=== PATIENT | female | born 1945 | race Caucasian/White ===

== ENCOUNTER 2018-03-14 08:53 | Emergency (ER) | payer MEDICARE, SELFPAY ==
[2018-03-14 08:59] VITALS: BMI 22.0
--- NOTE | 2018-03-14 09:06 | ED.ABDPAIN ---
HPI - Abdominal Pain General Chief Complaint: Abdominal Pain Stated Complaint: ADOMINAL CRAMPING Time Seen by Provider: 03/14/18 08:58 Source: patient Mode of arrival: ambulatory Limitations: no limitations History of Present Illness HPI narrative: 72-year-old female nonsmoker with history of colon cancer and bowel resection presents to the emergency department today with a chief complaint of increasing generalized lower abdominal pain since this morning. She states it feels like prior episodes of bowel obstruction. She denies fever, chills nor nausea or vomiting. She has been incontinent of bowel and bladder since her bowel surgeries in 2012 down in [place]. She denies runny nose, sore throat or cough. She has had no chest pain or shortness of breath. She states her symptoms started soon after eating dinner last evening. She denies bad food, exposure to go person's, international travel, antibiotics. Her pain is crampy and building MD complaint: abdominal pain Onset (ago): hour(s) Pain Consistency: constant Location: LLQ, RLQ and suprapubic Severity: similar to previous episodes Quality: cramping Radiation: none Migration to: no migration Relieving factors: nothing Exacerbating factors: nothing Associated symptoms: denies other symptoms Related Data Home Medications Medication Instructions Recorded Confirmed Calcium 1 tab PO DAILY 03/14/18 03/14/18 Fish Oil 1 cap PO DAILY 03/14/18 03/14/18 Vitamin D3 1 cap PO DAILY 03/14/18 03/14/18 aspirin 81 mg PO DAILY 03/14/18 03/14/18 multivitamin 1 tab PO DAILY 03/14/18 03/14/18 omeprazole magnesium [Prilosec OTC] 20 mg PO DAILY 03/14/18 03/14/18 Previous Rx's Medication Instructions Recorded sulfamethoxazole-trimethoprim 1 tab PO BID 7 Days #14 tab 03/14/18 [Bactrim DS] Allergies Allergy/AdvReac Type Severity Reaction Status Date / Time erythromycin base Allergy Verified 03/14/18 08:59 Penicillins Allergy Verified 03/14/18 08:59 pseudoephedrine Allergy Verified 03/14/18 08:59 [From Actifed] triprolidine [From Actifed] Allergy Verified 03/14/18 08:59 Review of Systems Constitutional Denies chills, Denies fever(s), Denies lethargy and Denies weakness Eyes Denies change in vision, Denies eye discharge, Denies irritation and Denies loss of vision ENT Ears, Nose, Mouth, and Throat: Denies change in voice, Denies neck pain and Denies sore throat Cardiovascular Denies chest pain, Denies irregular heart rhythm, Denies lightheadedness, Denies palpitations, Denies dyspnea, Denies dyspnea on exertion and Denies orthopnea Respiratory Denies cough, Denies dyspnea, Denies dyspnea on exertion and Denies wheezing Gastrointestinal Gastrointestinal: Reports abdominal pain, Denies change in bowel habits, Denies diarrhea, Denies nausea and Denies vomiting Genitourinary Denies hematuria, Denies flank pain, Denies urinary incontinence and Denies urinary urgency Musculoskeletal Denies neck pain Integumentary/Breasts Denies pruritus, Denies erythema, Denies rash and Denies wounds Neurologic Denies confusion, Denies loss of vision and Denies weakness Psychiatric Denies anxiety, Denies confusion, Denies depression, Denies homicidal ideation and Denies suicidal ideation Endocrine Denies palpitations Hematologic/Lymphatic Denies easy bruising Allergic/Immunologic Denies wheezing [facility] Social History Smoking Status: Never smoker Social History Smoking Status: Never smoker Exam Narrative Exam Narrative: GENERAL: 72-year-old female, appears younger than stated age, obviously uncomfortable, tearful, rubbing her lower abdomen HEAD: Atraumatic. Normocephalic. No temporal or scalp tenderness. EYES: Pupils equal round and reactive. Extraocular motions intact. No scleral icterus. No injection or drainage. ENT: Nose without bleeding, purulent drainage or septal hematoma. Throat without erythema, tonsillar hypertrophy or exudate. Uvula midline. Airway patent. NECK: Trachea midline. No JVD or lymphadenopathy. Supple, nontender, no meningeal signs. CARDIOVASCULAR: Regular rate and rhythm without murmurs, gallops, or rubs. RESPIRATORY: Clear to auscultation. Breath sounds equal bilaterally. No wheezes, rales, or rhonchi. GASTROINTESTINAL: Abdomen soft, mild suprapubic tenderness, nondistended. No hepato-splenomegaly, or palpable masses. No guarding. EXTREMITIES: No clubbing, cyanosis, or edema. No joint tenderness, effusion, or edema noted. BACK: Nontender without deformity or crepitance. No flank tenderness. NEURO: AOx3. SKIN: No rash or erythema. Initial Vital Signs Initial Vital Signs: Vital Signs Pulse Rate 70 03/14/18 10:00 Respiratory Rate 17 03/14/18 10:00 Blood Pressure 121/60 03/14/18 10:00 Pulse Oximetry 97 03/14/18 10:00 Course Orders Ordered: ED Orders 03/14/18 10:04 CT abdomen pelvis w con Stat 03/14/18 10:15 Urinalysis and Microscopic Stat Urine Culture Stat 03/14/18 11:30 US pelvic complete Stat Discontinued Medications Diphenhydramine HCl (Benadryl) 25 mg IV NOW ONE Stop: 03/14/18 09:59 Last Admin: 03/14/18 10:07 Dose: 25 mg Sodium Chloride (Normal Saline 0.9%) 500 mls @ 1,000 mls/hr IV BOLUS ONE Stop: 03/14/18 09:42 Last Infusion: 03/14/18 10:50 Dose: 0 mls/hr Admin: 03/14/18 09:32 Dose: 1,000 mls/hr Methylprednisolone (Solu-Medrol 125 Mg Vial) 125 mg IV NOW ONE Stop: 03/14/18 09:59 Last Admin: 03/14/18 10:07 Dose: 125 mg Pantoprazole Sodium (Protonix) 40 mg IV NOW ONE Stop: 03/14/18 09:14 Last Admin: 03/14/18 09:29 Dose: 40 mg Vital Signs - 8 hr 03/14/18 11:10 03/14/18 12:43 Pulse Rate 72 77 Respiratory Rate 14 16 Blood Pressure [Left Arm] 110/47 L 124/66 Pulse Oximetry 96 96 MDM - Abdominal Pain Lab Data Attestation: I reviewed the patient's lab results. Result diagrams: 03/14/18 09:10 03/14/18 09:10 Lab Results 03/14/18 03/14/18 03/14/18 Range/Units 09:10 09:10 10:15 WBC 11.5 H (4.5-11.0) X10^3/uL RBC 4.31 (4.0-5.2) X10^6/uL Hgb 12.1 (12.0-16.0) g/dL Hct 36.9 (36-46) % MCV 85.6 (80-100) fL MCH 28.1 (26-34) PG MCHC 32.8 (30-36) % RDW 14.9 H (11.6-14.8) % Plt Count 306 (150-400) X10^3/uL Neut % (Auto) 81.0 H (50-75) % Lymph % (Auto) 8.5 L (25-40) % [place] % (Auto) 9.8 (3-14) % Eos % (Auto) 0.1 L (2-4) % Baso % (Auto) 0.6 (0-2) % Neut # (Auto) 9400 H (2128-6207) /uL Lymph # (Auto) 1000 L (9012-4049) /uL [place] # (Auto) 1100 H (0-900) /uL Eos # (Auto) 0 (0-450) /uL Baso # (Auto) 100 (0-100) /uL Sodium 137 (137-145) mmol/L Potassium 3.8 (3.4-5.1) mmol/L Chloride 104 (98-107) mmol/L Carbon Dioxide 22 (22-32) mmol/L BUN 15 (7-17) mg/dL Creatinine 0.70 (0.52-1.04) mg/dL Estimated GFR > 60.0 (>60) mL/min BUN/Creatinine Ratio 21.4 (6-22) Glucose 105 (80-110) mg/dL Calcium 9.2 (8.4-10.2) mg/dL Total Bilirubin 0.4 (0.2-1.3) mg/dL AST 23 (14-36) IU/L ALT 38 (9-52) IU/L Alkaline Phosphatase 72 (38-126) U/L Total Protein 7.5 (6.3-8.2) g/dL Albumin 4.4 (3.5-5.0) g/dL Globulin 3.1 (1.7-4.1) g/dL Albumin/Globulin Ratio 1.4 (1.0-2.8) Lipase 56 (23-300) U/L Urine Color Yellow Urine Appearance Cloudy Urine pH 6.0 (4.5-8.0) Ur Specific [place] 1.015 (1.000-1.035) Urine Protein 1+ H (Negative) Urine Glucose (UA) Negative (Negative) g/dL Urine Ketones 1+ H (NEGATIVE) Urine Occult Blood 3+ H (Negative) Urine Nitrate Positive H (Negative) Urine Bilirubin Negative (NEGATIVE) Urine Urobilinogen 0.2 (0.2) E.U./dL Ur Leukocyte Esterase 2+ H (NEGATIVE) Urine RBC 30-100/hpf H (0-5/HPF) Urine WBC >100/hpf H (0-5/HPF) Urine Bacteria Many (>30) H (None) Ur Culture Indicated? Specimen cultured Imaging Data CT scan - abdomen: Radiologist's impression: [address] [address] [address] Scan Report Signed Patient: Kamilah PuenteMR#: [id number] : 7Acct:[id number] Age/Sex: 72 / FDate of Service: 03/14/18 Loc: ED Accession Number: [id number] Procedure: CT abdomen pelvis w con Ordering Provider: Giacomo Madrid D.O. PROCEDURE: CT ABDOMEN PELVIS W CON INDICATIONS: severe abdominal pain TECHNIQUE: After the administration of intravenous contrast, 5 mm thick sections acquired from the diaphragm to the symphysis. 5 mm coronal and sagittal reformats were acquired. For radiation dose reduction, the following was used: automated exposure control, adjustment of mA and/or kV according to patient size. COMPARISON: None. FINDINGS: Image quality: Excellent. ABDOMEN: Lung bases: Lung bases are clear. Heart size is normal. Solid organs: Liver is normal in size and enhancement. Focal fatty infiltration of the liver adjacent to the falciform ligament. 6 mm probable cyst noted in the right lobe deliver. Gallbladder is within normal limits. Biliary system is non dilated. Pancreas enhances normally. Spleen is normal in size and enhancement. No adrenal nodules. Kidneys demonstrate normal size and enhancement, without hydronephrosis. There is enhancement of the ureter epithelium bilaterally which is a nonspecific finding, but can be associated with urinary tract infections. Peritoneum and bowel: Small hiatal hernia. Bowel loops demonstrate normal wall thickness and caliber. A moderate amount of stool seen throughout the colon. Anastomotic sutures noted at the rectoanal junction. No free fluid or air. The visualized appendix is normal. Nodes and vessels: No retroperitoneal or mesenteric adenopathy by size criteria. Aorta and inferior vena cava are normal in size. Miscellaneous: No ventral hernias. PELVIS: Genitourinary: Bladder wall thickness is normal. The uterus is absent. 2.1 cm right adnexal region cyst is noted. Miscellaneous: No inguinal hernias or adenopathy. Bones: No suspicious bony lesions. No vertebral body compression fractures. Lateral spine grade one L2 on L3 degenerative retrolisthesis noted. IMPRESSION: 1. No free fluid or free air. 2. No dilated loops of bowel. 3. Moderate fecal loading throughout the colon. Please correlate with clinical data. 4. Postsurgical changes at the rectoanal junction. Please correlate this history. 5. 2.1 cm right adnexal region cyst and 2.2 cm left adnexal region cyst. Recommend pelvic ultrasound for definitive characterization. Uterus is surgically absent. 6. Enhancement of the ureteral urothelium. Finding is nonspecific, but be associated with urinary tract infections. Recommend correlation with urinalysis data. Dictated by: Lawanda Francis MD, PhD on 03/14/2018 at 11:14 Approved by: Lawanda Francis MD, PhD on 03/14/2018 at 11:22 Abdominal x-ray: Radiologist's impression: [place] [address] CT Scan Report Signed Patient: Kamilah PuenteMR#: [id number] : 7Acct:[id number] Age/Sex: 72 / FDate of Service: 03/14/18 Loc: ED Accession Number: [id number] Procedure: CT abdomen pelvis w con Ordering Provider: Giacomo Madrid D.O. PROCEDURE: CT ABDOMEN PELVIS W CON INDICATIONS: severe abdominal pain TECHNIQUE: After the administration of intravenous contrast, 5 mm thick sections acquired from the diaphragm to the symphysis. 5 mm coronal and sagittal reformats were acquired. For radiation dose reduction, the following was used: automated exposure control, adjustment of mA and/or kV according to patient size. COMPARISON: None. FINDINGS: Image quality: Excellent. ABDOMEN: Lung bases: Lung bases are clear. Heart size is normal. Solid organs: Liver is normal in size and enhancement. Focal fatty infiltration of the liver adjacent to the falciform ligament. 6 mm probable cyst noted in the right lobe deliver. Gallbladder is within normal limits. Biliary system is non dilated. Pancreas enhances normally. Spleen is normal in size and enhancement. No adrenal nodules. Kidneys demonstrate normal size and enhancement, without hydronephrosis. There is enhancement of the ureter epithelium bilaterally which is a nonspecific finding, but can be associated with urinary tract infections. Peritoneum and bowel: Small hiatal hernia. Bowel loops demonstrate normal wall thickness and caliber. A moderate amount of stool seen throughout the colon. Anastomotic sutures noted at the rectoanal junction. No free fluid or air. The visualized appendix is normal. Nodes and vessels: No retroperitoneal or mesenteric adenopathy by size criteria. Aorta and inferior vena cava are normal in size. Miscellaneous: No ventral hernias. PELVIS: Genitourinary: Bladder wall thickness is normal. The uterus is absent. 2.1 cm right adnexal region cyst is noted. Miscellaneous: No inguinal hernias or adenopathy. Bones: No suspicious bony lesions. No vertebral body compression fractures. Lateral spine grade one L2 on L3 degenerative retrolisthesis noted. IMPRESSION: 1. No free fluid or free air. 2. No dilated loops of bowel. 3. Moderate fecal loading throughout the colon. Please correlate with clinical data. 4. Postsurgical changes at the rectoanal junction. Please correlate this history. 5. 2.1 cm right adnexal region cyst and 2.2 cm left adnexal region cyst. Recommend pelvic ultrasound for definitive characterization. Uterus is surgically absent. 6. Enhancement of the ureteral urothelium. Finding is nonspecific, but be associated with urinary tract infections. Recommend correlation with urinalysis data. Dictated by: Lawanda Francis MD, PhD on 03/14/2018 at 11:14 Approved by: Lawanda Francis MD, PhD on 03/14/2018 at 11:22 US - abdomen: Radiologist's impression: atient: CindiKamilah#: [id number] : 7Acct:[id number] Age/Sex: 72 / FDate of Service: 03/14/18 Loc: ED Accession Number: [id number] Procedure: US pelvic complete Ordering Provider: Giacomo Madrid D.O. PROCEDURE: US PELVIC COMPLETE INDICATIONS: PAIN; ABNORMAL CT TECHNIQUE: Real-time scanning was performed of the pelvic organs, with image documentation. Additional endovaginal scanning was necessary due to incomplete visualization of the adnexal and endometrial structures by transabdominal scanning. COMPARISON: [facility], CT, CT ABDOMEN PELVIS W CON, 03/14/2018, 9:57. [facility], CR, XR ACUTE ABDOMEN SERIES, 03/14/2018, 9:16. FINDINGS: Transabdominal scanning: Limited scanning through the kidneys shows no hydronephrosis. No pathologic free abdominal or pelvic fluid. Endovaginal scanning: Uterus: Removed. Ovaries: The right ovary measures 2.6 x 1.9 x 1.9 cm. The left ovary measures 2.8 x 2.2 x 3.8 cm. The ovaries have a normal sonographic appearance, with simple appearing bilateral cysts, with the largest on the right measuring 1.4 cm and the largest on the left measuring 2 cm. No nodularity or abnormal vascularity can be seen of the cysts. No adnexal masses are seen. IMPRESSION: Simple appearing bilateral ovarian cyst are seen, without suspicious features. The largest measures up to 2 cm. No suspicious masses are seen. Status post hysterectomy. Dictated by: Rudy Vang M.D. on 03/14/2018 at 11:19 Approved by: Rudy Vang M.D. on 03/14/2018 at 11:22 MDM Narrative Medical decision making narrative: Multiple etiologies for patient's symptoms considered including: [Bowel obstruction, ovarian trouble, bladder spasm, UTI, postsurgical sequela, versus other] Patient's symptoms improved or duration of stay with above-stated therapies. Findings and discharge diagnosis discussed with patient/family followed by verbalization of understanding Return precautions discussed with patient/family whom verbalize understanding. Discharge Plan Departure Patient Disposition: Home Clinical Impression: Acute UTI Discharge Date/Time: 03/14/18 12:48 Interventions: ED Discharge Assessment Last Done: 03/14/18 12:48 Instructions: DI for Urinary Tract Infection (UTI) Activity Restrictions/Additional Instructions: *You have been diagnosed with [ acute UTI ] *What to do: *Take medications as directed *Follow up with your primary care provider in 2-3 days, call for an appointment. Let them know you were seen in the Emergency Department and that we ask that you be seen in follow up *Return to ER if you should have any new, worsening or concerning symptoms Prescriptions: New sulfamethoxazole-trimethoprim [Bactrim DS] 800-160 mg tablet 1 tab PO BID 7 Days Qty: 14 RF: 0 No Action multivitamin Tablet 1 tab PO DAILY RF: 0 aspirin 81 mg Tablet,Delayed Release (Dr/Ec) 81 mg PO DAILY RF: 0 omeprazole magnesium [Prilosec OTC] 20 mg Tablet,Delayed Release (Dr/Ec) 20 mg PO DAILY RF: 0 Calcium 1 tab PO DAILY RF: 0 Fish Oil 1 cap PO DAILY RF: 0 Vitamin D3 1 cap PO DAILY RF: 0
--- NOTE | 2018-03-14 09:14 | DI.RAD.S_ITS ---
PROCEDURE: XR ACUTE ABDOMEN SERIES INDICATIONS: Abdominal pain, feels like prior obstruction TECHNIQUE: One view chest and two views of the abdomen were acquired. COMPARISON: None. FINDINGS: Surgical changes and devices: Surgical staple line and clips project in the lower pelvis. Chest: Lungs are clear. Heart size is normal. No pleural effusions. No pneumoperitoneum. Abdomen: Bowel gas pattern is nonobstructive however there is large amount of stool. No suspicious calcifications. Visualized solid organ contours appear normal. Bones: No suspicious bony lesions. IMPRESSION: No evidence of bowel obstruction. Large amount of stool suggesting severe constipation. Dictated by: Hank Lanier M.D. on 03/14/2018 at 9:35 Approved by: Hank Lanier M.D. on 03/14/2018 at 9:35
--- NOTE | 2018-03-14 09:17 | ED_ITS ---
HPI - Abdominal Pain General Chief Complaint: Abdominal Pain Stated Complaint: ADOMINAL CRAMPING Time Seen by Provider: 03/14/18 08:58 Source: patient Mode of arrival: ambulatory Limitations: no limitations History of Present Illness HPI narrative: 72-year-old female nonsmoker with history of colon cancer and bowel resection presents to the emergency department today with a chief complaint of increasing generalized lower abdominal pain since this morning. She states it feels like prior episodes of bowel obstruction. She denies fever , chills nor nausea or vomiting. She has been incontinent of bowel and bladder since her bowel surgeries in 2012 down in [place]. She denies runny nose, sore throat or cough. She has had no chest pain or shortness of breath. She states her symptoms started soon after eating dinner last evening. She denies bad food , exposure to go person's, international travel, antibiotics. Her pain is crampy and building MD complaint: abdominal pain Onset (ago): hour(s) Pain Consistency: constant Location: LLQ, RLQ and suprapubic Severity: similar to previous episodes Quality: cramping Radiation: none Migration to: no migration Relieving factors: nothing Exacerbating factors: nothing Associated symptoms: denies other symptoms Related Data Home Medications Medication Instructions Recorded Confirmed Calcium 1 tab PO DAILY 03/14/18 03/14/18 Fish Oil 1 cap PO DAILY 03/14/18 03/14/18 Vitamin D3 1 cap PO DAILY 03/14/18 03/14/18 aspirin 81 mg PO DAILY 03/14/18 03/14/18 multivitamin 1 tab PO DAILY 03/14/18 03/14/18 omeprazole magnesium [Prilosec OTC] 20 mg PO DAILY 03/14/18 03/14/18 Previous Rx's Medication Instructions Recorded sulfamethoxazole-trimethoprim 1 tab PO BID 7 Days #14 tab 03/14/18 [Bactrim DS] Allergies Allergy/AdvReac Type Severity Reaction Status Date / Time erythromycin base Allergy Verified 03/14/18 08:59 Penicillins Allergy Verified 03/14/18 08:59 pseudoephedrine Allergy Verified 03/14/18 08:59 [From Actifed] triprolidine [From Actifed] Allergy Verified 03/14/18 08:59 Review of Systems Constitutional Denies chills, Denies fever(s), Denies lethargy and Denies weakness Eyes Denies change in vision, Denies eye discharge, Denies irritation and Denies loss of vision ENT Ears, Nose, Mouth, and Throat: Denies change in voice, Denies neck pain and Denies sore throat Cardiovascular Denies chest pain, Denies irregular heart rhythm, Denies lightheadedness, Denies palpitations, Denies dyspnea, Denies dyspnea on exertion and Denies orthopnea Respiratory Denies cough, Denies dyspnea, Denies dyspnea on exertion and Denies wheezing Gastrointestinal Gastrointestinal: Reports abdominal pain, Denies change in bowel habits, Denies diarrhea, Denies nausea and Denies vomiting Genitourinary Denies hematuria, Denies flank pain, Denies urinary incontinence and Denies urinary urgency Musculoskeletal Denies neck pain Integumentary/Breasts Denies pruritus, Denies erythema, Denies rash and Denies wounds Neurologic Denies confusion, Denies loss of vision and Denies weakness Psychiatric Denies anxiety, Denies confusion, Denies depression, Denies homicidal ideation and Denies suicidal ideation Endocrine Denies palpitations Hematologic/Lymphatic Denies easy bruising Allergic/Immunologic Denies wheezing [facility] Social History Smoking Status: Never smoker Social History Smoking Status: Never smoker Exam Narrative Exam Narrative: GENERAL: 72-year-old female, appears younger than stated age, obviously uncomfortable, tearful, rubbing her lower abdomen HEAD: Atraumatic. Normocephalic. No temporal or scalp tenderness. EYES: Pupils equal round and reactive. Extraocular motions intact. No scleral icterus. No injection or drainage. ENT: Nose without bleeding, purulent drainage or septal hematoma. Throat without erythema, tonsillar hypertrophy or exudate. Uvula midline. Airway patent. NECK: Trachea midline. No JVD or lymphadenopathy. Supple, nontender, no meningeal signs. CARDIOVASCULAR: Regular rate and rhythm without murmurs, gallops, or rubs. RESPIRATORY: Clear to auscultation. Breath sounds equal bilaterally. No wheezes , rales, or rhonchi. GASTROINTESTINAL: Abdomen soft, mild suprapubic tenderness, nondistended. No hepato-splenomegaly, or palpable masses. No guarding. EXTREMITIES: No clubbing, cyanosis, or edema. No joint tenderness, effusion, or edema noted. BACK: Nontender without deformity or crepitance. No flank tenderness. NEURO: AOx3. SKIN: No rash or erythema. Initial Vital Signs Initial Vital Signs: Vital Signs Pulse Rate 70 03/14/18 10:00 Respiratory Rate 17 03/14/18 10:00 Blood Pressure 121/60 03/14/18 10:00 Pulse Oximetry 97 03/14/18 10:00 Course Orders Ordered: ED Orders 03/14/18 10:04 CT abdomen pelvis w con Stat 03/14/18 10:15 Urinalysis and Microscopic Stat Urine Culture Stat 03/14/18 11:30 US pelvic complete Stat Discontinued Medications Diphenhydramine HCl (Benadryl) 25 mg IV NOW ONE Stop: 03/14/18 09:59 Last Admin: 03/14/18 10:07 Dose: 25 mg Sodium Chloride (Normal Saline 0.9%) 500 mls @ 1,000 mls/hr IV BOLUS ONE Stop: 03/14/18 09:42 Last Infusion: 03/14/18 10:50 Dose: 0 mls/hr Admin: 03/14/18 09:32 Dose: 1,000 mls/hr Methylprednisolone (Solu-Medrol 125 Mg Vial) 125 mg IV NOW ONE Stop: 03/14/18 09:59 Last Admin: 03/14/18 10:07 Dose: 125 mg Pantoprazole Sodium (Protonix) 40 mg IV NOW ONE Stop: 03/14/18 09:14 Last Admin: 03/14/18 09:29 Dose: 40 mg Vital Signs - 8 hr 03/14/18 11:10 03/14/18 12:43 Pulse Rate 72 77 Respiratory Rate 14 16 Blood Pressure [Left Arm] 110/47 L 124/66 Pulse Oximetry 96 96 MDM - Abdominal Pain Lab Data Attestation: I reviewed the patient's lab results. Result diagrams: 03/14/18 09:10 03/14/18 09:10 Lab Results 03/14/18 03/14/18 03/14/18 Range/Units 09:10 09:10 10:15 WBC 11.5 H (4.5-11.0) X10^3/uL RBC 4.31 (4.0-5.2) X10^6/uL Hgb 12.1 (12.0-16.0) g/dL Hct 36.9 (36-46) % MCV 85.6 (80-100) fL MCH 28.1 (26-34) PG MCHC 32.8 (30-36) % RDW 14.9 H (11.6-14.8) % Plt Count 306 (150-400) X10^3/uL Neut % (Auto) 81.0 H (50-75) % Lymph % (Auto) 8.5 L (25-40) % Coffee % (Auto) 9.8 (3-14) % Eos % (Auto) 0.1 L (2-4) % Baso % (Auto) 0.6 (0-2) % Neut # (Auto) 9400 H (5514-9128) /uL Lymph # (Auto) 1000 L (6606-5421) /uL Coffee # (Auto) 1100 H (0-900) /uL Eos # (Auto) 0 (0-450) /uL Baso # (Auto) 100 (0-100) /uL Sodium 137 (137-145) mmol/L Potassium 3.8 (3.4-5.1) mmol/L Chloride 104 (98-107) mmol/L Carbon Dioxide 22 (22-32) mmol/L BUN 15 (7-17) mg/dL Creatinine 0.70 (0.52-1.04) mg/dL Estimated GFR > 60.0 (>60) mL/min BUN/Creatinine Ratio 21.4 (6-22) Glucose 105 (80-110) mg/dL Calcium 9.2 (8.4-10.2) mg/dL Total Bilirubin 0.4 (0.2-1.3) mg/dL AST 23 (14-36) IU/L ALT 38 (9-52) IU/L Alkaline Phosphatase 72 (38-126) U/L Total Protein 7.5 (6.3-8.2) g/dL Albumin 4.4 (3.5-5.0) g/dL Globulin 3.1 (1.7-4.1) g/dL Albumin/Globulin Ratio 1.4 (1.0-2.8) Lipase 56 (23-300) U/L Urine Color Yellow Urine Appearance Cloudy Urine pH 6.0 (4.5-8.0) Ur Specific [place] 1.015 (1.000-1.035) Urine Protein 1+ H (Negative) Urine Glucose (UA) Negative (Negative) g/dL Urine Ketones 1+ H (NEGATIVE) Urine Occult Blood 3+ H (Negative) Urine Nitrate Positive H (Negative) Urine Bilirubin Negative (NEGATIVE) Urine Urobilinogen 0.2 (0.2) E.U./dL Ur Leukocyte Esterase 2+ H (NEGATIVE) Urine RBC 30-100/hpf H (0-5/HPF) Urine WBC >100/hpf H (0-5/HPF) Urine Bacteria Many (>30) H (None) Ur Culture Indicated? Specimen cultured Imaging Data CT scan - abdomen: Radiologist's impression: [address] [address] [address] Scan Report Signed Patient: Kamilah PuenteMR#: [id number] : 7Acct:[id number] Age/Sex: 72 / FDate of Service: 03/14/18 Loc: ED Accession Number: [id number] Procedure: CT abdomen pelvis w con Ordering Provider: Giacomo Madrid D.O. PROCEDURE: CT ABDOMEN PELVIS W CON INDICATIONS: severe abdominal pain TECHNIQUE: After the administration of intravenous contrast, 5 mm thick sections acquired from the diaphragm to the symphysis. 5 mm coronal and sagittal reformats were acquired. For radiation dose reduction, the following was used: automated exposure control, adjustment of mA and/or kV according to patient size. COMPARISON: None. FINDINGS: Image quality: Excellent. ABDOMEN: Lung bases: Lung bases are clear. Heart size is normal. Solid organs: Liver is normal in size and enhancement. Focal fatty infiltration of the liver adjacent to the falciform ligament. 6 mm probable cyst noted in the right lobe deliver. Gallbladder is within normal limits. Biliary system is non dilated. Pancreas enhances normally. Spleen is normal in size and enhancement. No adrenal nodules. Kidneys demonstrate normal size and enhancement, without hydronephrosis. There is enhancement of the ureter epithelium bilaterally which is a nonspecific finding , but can be associated with urinary tract infections. Peritoneum and bowel: Small hiatal hernia. Bowel loops demonstrate normal wall thickness and caliber. A moderate amount of stool seen throughout the colon. Anastomotic sutures noted at the rectoanal junction. No free fluid or air. The visualized appendix is normal. Nodes and vessels: No retroperitoneal or mesenteric adenopathy by size criteria. Aorta and inferior vena cava are normal in size. Miscellaneous: No ventral hernias. PELVIS: Genitourinary: Bladder wall thickness is normal. The uterus is absent. 2.1 cm right adnexal region cyst is noted. Miscellaneous: No inguinal hernias or adenopathy. Bones: No suspicious bony lesions. No vertebral body compression fractures. Lateral spine grade one L2 on L3 degenerative retrolisthesis noted. IMPRESSION: 1. No free fluid or free air. 2. No dilated loops of bowel. 3. Moderate fecal loading throughout the colon. Please correlate with clinical data. 4. Postsurgical changes at the rectoanal junction. Please correlate this history. 5. 2.1 cm right adnexal region cyst and 2.2 cm left adnexal region cyst. Recommend pelvic ultrasound for definitive characterization. Uterus is surgically absent. 6. Enhancement of the ureteral urothelium. Finding is nonspecific, but be associated with urinary tract infections. Recommend correlation with urinalysis data. Dictated by: Lawanda Francis MD, PhD on 03/14/2018 at 11:14 Approved by: Lawanda Francis MD, PhD on 03/14/2018 at 11:22 Abdominal x-ray: Radiologist's impression: [place] [address] CT Scan Report Signed Patient: Kamilah PuenteMR#: [id number] : 7Acct:[id number] Age/Sex: 72 / FDate of Service: 03/14/18 Loc: ED Accession Number: [id number] Procedure: CT abdomen pelvis w con Ordering Provider: Giacomo Madrid D.O. PROCEDURE: CT ABDOMEN PELVIS W CON INDICATIONS: severe abdominal pain TECHNIQUE: After the administration of intravenous contrast, 5 mm thick sections acquired from the diaphragm to the symphysis. 5 mm coronal and sagittal reformats were acquired. For radiation dose reduction, the following was used: automated exposure control, adjustment of mA and/or kV according to patient size. COMPARISON: None. FINDINGS: Image quality: Excellent. ABDOMEN: Lung bases: Lung bases are clear. Heart size is normal. Solid organs: Liver is normal in size and enhancement. Focal fatty infiltration of the liver adjacent to the falciform ligament. 6 mm probable cyst noted in the right lobe deliver. Gallbladder is within normal limits. Biliary system is non dilated. Pancreas enhances normally. Spleen is normal in size and enhancement. No adrenal nodules. Kidneys demonstrate normal size and enhancement, without hydronephrosis. There is enhancement of the ureter epithelium bilaterally which is a nonspecific finding , but can be associated with urinary tract infections. Peritoneum and bowel: Small hiatal hernia. Bowel loops demonstrate normal wall thickness and caliber. A moderate amount of stool seen throughout the colon. Anastomotic sutures noted at the rectoanal junction. No free fluid or air. The visualized appendix is normal. Nodes and vessels: No retroperitoneal or mesenteric adenopathy by size criteria. Aorta and inferior vena cava are normal in size. Miscellaneous: No ventral hernias. PELVIS: Genitourinary: Bladder wall thickness is normal. The uterus is absent. 2.1 cm right adnexal region cyst is noted. Miscellaneous: No inguinal hernias or adenopathy. Bones: No suspicious bony lesions. No vertebral body compression fractures. Lateral spine grade one L2 on L3 degenerative retrolisthesis noted. IMPRESSION: 1. No free fluid or free air. 2. No dilated loops of bowel. 3. Moderate fecal loading throughout the colon. Please correlate with clinical data. 4. Postsurgical changes at the rectoanal junction. Please correlate this history. 5. 2.1 cm right adnexal region cyst and 2.2 cm left adnexal region cyst. Recommend pelvic ultrasound for definitive characterization. Uterus is surgically absent. 6. Enhancement of the ureteral urothelium. Finding is nonspecific, but be associated with urinary tract infections. Recommend correlation with urinalysis data. Dictated by: Lawanda Francis MD, PhD on 03/14/2018 at 11:14 Approved by: Lawanda Francis MD, PhD on 03/14/2018 at 11:22 US - abdomen: Radiologist's impression: atient: CindiKamilah#: [id number] : 7Acct:[id number] Age/Sex: 72 / FDate of Service: 03/14/18 Loc: ED Accession Number: [id number] Procedure: US pelvic complete Ordering Provider: Giacomo Madrid D.O. PROCEDURE: US PELVIC COMPLETE INDICATIONS: PAIN; ABNORMAL CT TECHNIQUE: Real-time scanning was performed of the pelvic organs, with image documentation. Additional endovaginal scanning was necessary due to incomplete visualization of the adnexal and endometrial structures by transabdominal scanning. COMPARISON: [facility], CT, CT ABDOMEN PELVIS W CON, 03/14/2018, 9:57. [facility], CR, XR ACUTE ABDOMEN SERIES, 03/14/2018, 9:16. FINDINGS: Transabdominal scanning: Limited scanning through the kidneys shows no hydronephrosis. No pathologic free abdominal or pelvic fluid. Endovaginal scanning: Uterus: Removed. Ovaries: The right ovary measures 2.6 x 1.9 x 1.9 cm. The left ovary measures 2.8 x 2.2 x 3.8 cm. The ovaries have a normal sonographic appearance, with simple appearing bilateral cysts, with the largest on the right measuring 1.4 cm and the largest on the left measuring 2 cm. No nodularity or abnormal vascularity can be seen of the cysts. No adnexal masses are seen. IMPRESSION: Simple appearing bilateral ovarian cyst are seen, without suspicious features. The largest measures up to 2 cm. No suspicious masses are seen. Status post hysterectomy. Dictated by: Rudy Vang M.D. on 03/14/2018 at 11:19 Approved by: Rudy Vang M.D. on 03/14/2018 at 11:22 MDM Narrative Medical decision making narrative: Multiple etiologies for patient's symptoms considered including: [Bowel obstruction, ovarian trouble, bladder spasm, UTI, postsurgical sequela, versus other] Patient's symptoms improved or duration of stay with above-stated therapies. Findings and discharge diagnosis discussed with patient/family followed by verbalization of understanding Return precautions discussed with patient/family whom verbalize understanding. Discharge Plan Departure Patient Disposition: Home Clinical Impression: Acute UTI Discharge Date/Time: 03/14/18 12:48 Interventions: ED Discharge Assessment Last Done: 03/14/18 12:48 Instructions: DI for Urinary Tract Infection (UTI) Activity Restrictions/Additional Instructions: *You have been diagnosed with [ acute UTI ] *What to do: *Take medications as directed *Follow up with your primary care provider in 2-3 days, call for an appointment. Let them know you were seen in the Emergency Department and that we ask that you be seen in follow up *Return to ER if you should have any new, worsening or concerning symptoms Prescriptions: New sulfamethoxazole-trimethoprim [Bactrim DS] 800-160 mg tablet 1 tab PO BID 7 Days Qty: 14 RF: 0 No Action multivitamin Tablet 1 tab PO DAILY RF: 0 aspirin 81 mg Tablet,Delayed Release (Dr/Ec) 81 mg PO DAILY RF: 0 omeprazole magnesium [Prilosec OTC] 20 mg Tablet,Delayed Release (Dr/Ec) 20 mg PO DAILY RF: 0 Calcium 1 tab PO DAILY RF: 0 Fish Oil 1 cap PO DAILY RF: 0 Vitamin D3 1 cap PO DAILY RF: 0
[2018-03-14 09:21] LABS: Add Manual Diff / Slide Review NO; Basophils Absolute Auto 100 /uL (0-100); Basophils Percent Auto 0.6 % (0-2); Eosinophils Absolute Auto 0 /uL (0-450); Eosinophils Percent Auto 0.1 % (2-4); Hematocrit 36.9 % (36-46); Hemoglobin 12.1 g/dL (12.0-16.0); Lymphocytes Absolute Auto 1000 /uL (1100-4500); Lymphocytes Percent Auto 8.5 % (25-40); Mean Corpuscular HGB Conc 32.8 % (30-36); Mean Corpuscular Hemoglobin 28.1 PG (26-34); Mean Corpuscular Volume 85.6 fL (80-100); Monocytes Absolute Auto 1100 /uL (0-900); Monocytes Percent Auto 9.8 % (3-14); Neutrophils Absolute Auto 9400 /uL (1500-7000); Platelet Count 306 X10^3/uL (150-400); Red Blood Cell Count 4.31 X10^6/uL (4.0-5.2); Red Cell Distribution Width 14.9 % (11.6-14.8); White Blood Cell Count 11.5 X10^3/uL (4.5-11.0)
[2018-03-14] MEDS: PANTOPRAZOLE 40 MG VIAL IV (09:29)
[2018-03-14 09:31] LABS: Alanine Aminotransferase 38 IU/L (9-52); Albumin 4.4 g/dL (3.5-5.0); Albumin Globulin Ratio 1.4 (1.0-2.8); Alkaline Phosphatase 72 U/L (38-126); Aspartate Aminotransferase 23 IU/L (14-36); BUN Creatinine Ratio 21.4 (6-22); Bilirubin Total 0.4 mg/dL (0.2-1.3); Blood Urea Nitrogen 15 mg/dL (7-17); Calcium 9.2 mg/dL (8.4-10.2); Carbon Dioxide 22 mmol/L (22-32); Chloride 104 mmol/L (98-107); Estimated Glomerular Filt Rate > 60.0 mL/min (>60); Globulin 3.1 g/dL (1.7-4.1); Glucose 105 mg/dL (80-110); HEMOLYSIS < 15 (0-50); Lipase 56 U/L (23-300); Potassium 3.8 mmol/L (3.4-5.1); Sodium 137 mmol/L (137-145); Total Protein 7.5 g/dL (6.3-8.2)
[2018-03-14] MEDS: SODIUM CHLORIDE 0.9% 500 ML 1000 ML IV (09:32)
[2018-03-14 10:00] VITALS: BP 121/60; PULSE 70; RESP 17; O2SAT 97
--- NOTE | 2018-03-14 10:04 | DI.CT.S_ITS ---
PROCEDURE: CT ABDOMEN PELVIS W CON INDICATIONS: severe abdominal pain TECHNIQUE: After the administration of intravenous contrast, 5 mm thick sections acquired from the diaphragm to the symphysis. 5 mm coronal and sagittal reformats were acquired. For radiation dose reduction, the following was used: automated exposure control, adjustment of mA and/or kV according to patient size. COMPARISON: None. FINDINGS: Image quality: Excellent. ABDOMEN: Lung bases: Lung bases are clear. Heart size is normal. Solid organs: Liver is normal in size and enhancement. Focal fatty infiltration of the liver adjacent to the falciform ligament. 6 mm probable cyst noted in the right lobe deliver. Gallbladder is within normal limits. Biliary system is non dilated. Pancreas enhances normally. Spleen is normal in size and enhancement. No adrenal nodules. Kidneys demonstrate normal size and enhancement, without hydronephrosis. There is enhancement of the ureter epithelium bilaterally which is a nonspecific finding, but can be associated with urinary tract infections. Peritoneum and bowel: Small hiatal hernia. Bowel loops demonstrate normal wall thickness and caliber. A moderate amount of stool seen throughout the colon. Anastomotic sutures noted at the rectoanal junction. No free fluid or air. The visualized appendix is normal. Nodes and vessels: No retroperitoneal or mesenteric adenopathy by size criteria. Aorta and inferior vena cava are normal in size. Miscellaneous: No ventral hernias. PELVIS: Genitourinary: Bladder wall thickness is normal. The uterus is absent. 2.1 cm right adnexal region cyst is noted. Miscellaneous: No inguinal hernias or adenopathy. Bones: No suspicious bony lesions. No vertebral body compression fractures. Lateral spine grade one L2 on L3 degenerative retrolisthesis noted. IMPRESSION: 1. No free fluid or free air. 2. No dilated loops of bowel. 3. Moderate fecal loading throughout the colon. Please correlate with clinical data. 4. Postsurgical changes at the rectoanal junction. Please correlate this history. 5. 2.1 cm right adnexal region cyst and 2.2 cm left adnexal region cyst. Recommend pelvic ultrasound for definitive characterization. Uterus is surgically absent. 6. Enhancement of the ureteral urothelium. Finding is nonspecific, but be associated with urinary tract infections. Recommend correlation with urinalysis data. Dictated by: Lawanda Francis MD, PhD on 03/14/2018 at 11:14 Approved by: Lawanda Francis MD, PhD on 03/14/2018 at 11:22
[2018-03-14] MEDS: methylPREDNISolone 125 MG/2 ML VIAL IV (10:07)
[2018-03-14] MEDS: diphenhydrAMINE 50 MG/ML VIAL 25 MG IV (10:07)
[2018-03-14 10:48] LABS: Appearance Urine UA CLOUDY; Bilirubin Urine UA NEGATIVE (NEGATIVE); Color Urine UA YELLOW; Glucose Urine UA NEGATIVE (Negative); Ketones Urine UA 1+ (NEGATIVE); Leukocyte Esterase Urine UA 2+ (NEGATIVE); Nitrite Urine UA POSITIVE (Negative); Occult Blood Urine UA 3+ (Negative); Protein Urine UA 1+ (Negative); Specific Gravity Urine UA 1.015 (1.000-1.035); Urobilinogen Urine UA 0.2 E.U./dL (0.2)
[2018-03-14 11:10] VITALS: BP 110/47; PULSE 72; RESP 14; O2SAT 96
[2018-03-14 11:10] LABS: Bacteria Urine Many (>30); Culture Indicated Urine Specimen Cultured; RBC Urine 30-100/HPF (0-5/HPF); WBC Urine >100/HPF (0-5/HPF)
--- NOTE | 2018-03-14 11:30 | DI.US.S_ITS ---
PROCEDURE: US PELVIC COMPLETE INDICATIONS: PAIN; ABNORMAL CT TECHNIQUE: Real-time scanning was performed of the pelvic organs, with image documentation. Additional endovaginal scanning was necessary due to incomplete visualization of the adnexal and endometrial structures by transabdominal scanning. COMPARISON: [facility], CT, CT ABDOMEN PELVIS W CON, 03/14/2018, 9:57. [facility], CR, XR ACUTE ABDOMEN SERIES, 03/14/2018, 9:16. FINDINGS: Transabdominal scanning: Limited scanning through the kidneys shows no hydronephrosis. No pathologic free abdominal or pelvic fluid. Endovaginal scanning: Uterus: Removed. Ovaries: The right ovary measures 2.6 x 1.9 x 1.9 cm. The left ovary measures 2.8 x 2.2 x 3.8 cm. The ovaries have a normal sonographic appearance, with simple appearing bilateral cysts, with the largest on the right measuring 1.4 cm and the largest on the left measuring 2 cm. No nodularity or abnormal vascularity can be seen of the cysts. No adnexal masses are seen. IMPRESSION: Simple appearing bilateral ovarian cyst are seen, without suspicious features. The largest measures up to 2 cm. No suspicious masses are seen. Status post hysterectomy. Dictated by: Rudy Vang M.D. on 03/14/2018 at 11:19 Approved by: Rudy Vang M.D. on 03/14/2018 at 11:22
[2018-03-14 12:43] VITALS: BP 124/66; PULSE 77; RESP 16; O2SAT 96
== END 2018-03-14 12:48 | disposition home or self-care (01) ==
PROVIDERS: Emergency Provider Emergency Medicine
DX: N39.0 Urinary tract infection, site not specified (principal)
CPT/HCPCS: 36591; 74022; 74177; 76830; 76856; 80053; 81001; 81015; 83690; 85025; 87077; 87086; 87186; 96361; 96374; 96375; 99283; 99285; C9113; J1200; J2930; Q9967